=== PATIENT | male | born 1950 | race Caucasian/White ===

== ENCOUNTER 2016-11-08 18:42 | Observation (INO) | payer OTHER ==
[~2016-11-08] VITALS: Ht 177.8 cm; Wt 84.6 kg
[~2016-11-08 18:42] MED LIST changes: -AMLODIPINE-VALS1 TAB PO; -CRESTOR5 MG PO; -EXFORGE 5 MG-321 TAB PO; -NORTRIPTYLINE H25 M1 PO
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
[2016-11-08] MEDS ORDERED: AMLODIPINE-VALS1 TAB PO (19:49)
[2016-11-08] MEDS ORDERED: NORTRIPTYLINE H25 M1 PO (19:50)
[2016-11-08] MEDS ORDERED: CRESTOR5 MG PO (19:51)
[2016-11-08 19:53] VITALS: BP 125/77
[2016-11-08 20:26] LABS: LYMPH # 1.4 K/mm3 (0.7-4.5); LYMPH % 10.6 % (10-50)
[2016-11-08 20:42] LABS: HEMOGLOBIN 14.6 g/dL (14.1-18.0)
[2016-11-08 23:00] VITALS: BP 102/66
[2016-11-09] MEDS ORDERED: EXFORGE 5 MG-321 TAB PO (00:12)
[2016-11-09 04:24] VITALS: BP 104/64
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
--- NOTE | 2016-11-09 07:23 | PHARMACY CLINIC NOTE ---
Patient Demographics Patient Demographics Admission date: 11/08/16 Date: 11/09/16 Time: 0723 Allergies Coded Allergies: Penicillins (Intermediate, 11/08/16) cefaclor (From CECLOR) (Intermediate, 11/08/16) cerivastatin (Intermediate, 11/08/16) HEIGHT- FT: 5 IN: 10.00 K.568 VTE General Information Labs: Laboratory Tests 11/08 2005 Coagulation PT (9.4 - 11.8 SECONDS) 12.7 H INR (0.9 - 1.1) 1.17 H Hematology Hgb (14.1 - 18.0 g/dL) 14.6 Hct (42.0 - 52.0 %) 43.2 Plt Count (142 - 424 K/mm3) 289 Disclaimer The following section includes nursing documentation that has been pulled in for pharmacy review. Patient's VTE score: 2 Patient's VTE Risk: VERY LOW RISK Clinical trial participant? No VTE prophylaxis [id number] VTE prophylaxis ordered? Yes Type of prophylaxis/treatment: MEAGHAN at 0723
[2016-11-09 07:28] LABS: HEMOGLOBIN 13.5 g/dL (14.1-18.0); LYMPH # 1.3 K/mm3 (0.7-4.5); LYMPH % 11.9 % (10-50)
[2016-11-09 07:56] VITALS: BP 104/64
[2016-11-09 08:00] VITALS: BP 137/78
[2016-11-09 08:24] LABS: AEROMONAS NOT DETECTED (NOT DETECTE); ASTROVIRUS NOT DETECTED (NOT DETECTE); CYCLOSPORA CAYETANENSIS NOT DETECTED (NOT DETECTE); E COLI O157 NOT DETECTED (NOT DETECTE); ENTEROAGGREGATIVE E COLI NOT DETECTED (NOT DETECTE); ENTEROPATHOGENIC E COLI NOT DETECTED (NOT DETECTE); ENTEROTOXIGENIC E COLI NOT DETECTED (NOT DETECTE); NOROVIRUS NOT DETECTED (NOT DETECTE); SAPOVIRUS NOT DETECTED (NOT DETECTE); SHIGA-LIKE TOXIN PROD. E COLI NOT DETECTED (NOT DETECTE); SHIGELLA/ENTEROINVASIVE E COLI NOT DETECTED (NOT DETECTE); VIBRIO CHOLERAE NOT DETECTED (NOT DETECTE)
[2016-11-09 09:44] VITALS: BP 137/78
--- NOTE | 2016-11-09 12:23 | RADIOLOGY REPORT PS360 ---
CT ABD PELVIS W/O CONTRAST HISTORY: DIARRHEA AND RECTAL BLEEDING Patient Age: 65 years: Male Ordering Physician: Sanjay Rodriguez MD TECHNIQUE: Helical CT scanning performed the abdomen and pelvis with no oral nor IV contrast. Sagittal and coronal reconstructions on CT workstation COMPARISON :. No previous studies for comparison FINDINGS Lung bases. Mild dependent bibasilar atelectasis . . Heart normal size. Abdomen pelvis. Lack of oral and IV contrast decreases sensitivity, liver with no focal lesions. No biliary ductal dilatation. Spleen unremarkable adrenals unremarkable. Pancreas unremarkable on this noncontrast study. Gallbladder contracted no calcified stones evident. Kidneys. No urinary tract obstruction. Right kidney with 3 small punctate nonobstructive calculi mid and upper kidney. None measuring over 3 mm size. Nonobstructive calculi. Minor stranding about both kidneys likely reflects chronic changes. . GI tract. Wall thickening is seen throughout the sigmoid & descending colon compatible with prominent colitis. There is stranding & hazy appearance throughout throughout the pericolic fat . Findings are most pronounced at the sigmoid colon. Numerous small perienteric lymph nodes are seen surrounding the involved colon and particularly evident superior to this thickened sigmoid colon, as well seen extending towards superior perirectal fat. No abscess. There are scattered diverticuli throughout the sigmoid colon and distal descending colon this appears to be a. Extensive diffuse colitis rather than a focal diverticulitis process. Is there history inflammatory bowel disease? Generous fluid is seen throughout the small bowel. Prominent stool is seen at the right colon an proximal transverse colon with generous gas throughout the transverse colon. Moderate size prostate for 0.8 cm diameter. Bladder unremarkable. No evidence of appendicitis.No free air. No free fluid. No osseous lesions. Prominent Degenerative changes throughout the lumbar spine.Levoscoliosis of L-spine Severe spinal stenosis L3/4 and to lesser degree of the levels due to the facet hypertrophy and disc bulges. IMPRESSION 1. Pronounced colitis at the sigmoid & descending colon. ... Prominent Wall thickening & inflammatory changes most evident sigmoid colon, but seen throughout descending colon.. .... Associated inflammatory paracolic stranding, with numerous small perienteric lymph nodes. ... Findings most compatible with infectious colitis , or possibly inflammatory bowel disease.. 2. Resulting large amount of solid stool throughout the right colon & proximal transverse colon with generous gas moderately distending transverse colon. -This is likely secondary to the inflammatory changes and narrowing of the descending and sigmoid colon. 3. Other nonacute findings in text.
== END 2016-11-09 09:35 | disposition home or self-care (01) ==
LOC: ER 18:42 → 2ND 21:01
PROVIDERS: Emergency Medicine; Family Medicine; General Practice
DX: K52.9 Noninfective gastroenteritis and colitis, unspecified (principal); I10 Essential (primary) hypertension
CPT/HCPCS: G0378

== ENCOUNTER → 2016-11-08 | Outpatient (CLI) | payer OTHER ==
[~2016-11-08] MED LIST: AMLODIPINE-VALS1 TAB PO; BACTRIM DS 8001 TAB PO; CRESTOR5 MG PO; EXFORGE 5 MG-321 TAB PO; NORTRIPTYLINE H25 M1 PO
== END ==
LOC: LAB 08:01
DX: K92.1 Melena (principal); A09 Infectious gastroenteritis and colitis, unspecified